=== PATIENT | female | born 2005 | race Caucasian/White ===

== ENCOUNTER 2024-05-05 18:01 | Emergency (ER) | payer MEDICAID ==
[~2024-05-05] VITALS: Ht 154.9 cm; Wt 66.0 kg
[2024-05-05 18:59] VITALS: TEMP 36.8; O2SAT 100
[2024-05-05 20:32] LABS: BASOPHILS % 0.4 % (0.0-2.0); EOSINOPHILS % 0.6 % (0.0-5.0); HEMATOCRIT. 43.5 % (36.0-48.0); HEMOGLOBIN. 14.9 g/dL (12.0-16.0); LYMPHOCYTES % 15.6 % (20.0-50.0); MEAN CORPUSCULAR HEMOGLOBIN 33.4 pg (28.0-32.0); MEAN CORPUSCULAR HGB CONC 34.3 g/dL (31.0-37.0); MEAN CORPUSCULAR VOLUME 97.2 fL (81.0-99.0); MEAN PLATELET VOLUME 8.5 fl (7.4-10.4); MONOCYTES % 8.7 % (2.0-8.0); NEUTROPHILS % 74.7 % (40.0-76.0); PLATELET 227 x1000/uL (130-400); RED BLOOD CELL COUNT 4.48 mill/uL (4.2-5.4); RED CELL DISTRIBUTION WIDTH 12.8 % (11.6-14.6); WHITE BLOOD COUNT 7.6 x1000/uL (4.5-11.0)
[2024-05-05 20:41] LABS: CHLORIDE 104 mEq/L (98-107); POTASSIUM 4.2 mEq/L (3.5-5.1); SODIUM 138 mEq/L (136-145)
[2024-05-05 20:42] LABS: CALCIUM 9.4 mg/dL (8.7-10.4); CARBON DIOXIDE 26 mEq/L (21-32)
[2024-05-05 20:43] LABS: HCG SCREEN NEGATIVE
[2024-05-05 20:47] LABS: CREATININE 0.6 mg/dL (0.6-1.0); GLUCOSE 96 mg/dL (70-105); UREA NITROGEN BLOOD 9 mg/dL (9-23)
[2024-05-05 20:49] LABS: ALANINE AMINOTRANSFERASE 43 IU/L (10-49); ALBUMIN 4.3 g/dL (3.2-4.8); ASPARTATE AMINOTRANSFERASE 32 IU/L (<34); BILIRUBIN DIRECT 0.2 mg/dL (<=3.0); BILIRUBIN TOTAL 0.6 mg/dL (0.1-1.0); PROTEIN TOTAL 7.5 g/dL (6.0-8.3)
[2024-05-05] MEDS: KETOROLAC 30MG/ML VIAL IM STA (20:59)
[2024-05-05 21:27] LABS: CLARITY URINE CLEAR (CLEAR); COLOR URINE DARK YELLOW (YELLOW); GLUCOSE URINE NEGATIVE (NEGATIVE); KETONES URINE NEGATIVE (NEGATIVE); LEUKOCYTE ESTERASE URINE NEGATIVE (NEGATIVE); NITRITE URINE NEGATIVE (NEGATIVE); OCCULT BLOOD URINE NEGATIVE (NEGATIVE); PH URINE 7.5 (4.5-8.0); PROTEIN URINE NEGATIVE (NEGATIVE); SPECIFIC GRAVITY URINE 1.022 (1.005-1.030)
[2024-05-05 21:50] VITALS: BP 118/78; PULSE 90; RESP 18; O2SAT 100
== END 2024-05-05 21:50 | disposition home or self-care (01) ==
LOC: ER 18:01
DX: R10.13 Epigastric pain (principal)
CPT/HCPCS: 99283; 80076; 80048; 81003; 84703; 83690; 85025; 36415; 96372; J1885

== ENCOUNTER 2024-06-23 10:34 | Emergency (ER) | payer MEDICAID ==
[~2024-06-23] VITALS: Ht 154.9 cm; Wt 76.0 kg
[2024-06-23 10:35] VITALS: O2SAT 99
[2024-06-23 10:45] VITALS: BP 115/80; PULSE 111; RESP 14; TEMP 36.6; O2SAT 97
[2024-06-23] MEDS ORDERED: AMOX-494 MT (11:09)
[2024-06-23] MEDS ORDERED: TOPUD PO (11:09)
[2024-06-23] MEDS ORDERED: IBUP-2029 MT (11:09)
== END 2024-06-23 11:36 | disposition home or self-care (01) ==
LOC: ER 10:34
DX: J02.9 Acute pharyngitis, unspecified (principal); H61.23 Impacted cerumen, bilateral; F19.90 Other psychoactive substance use, unspecified, uncomplicated
CPT/HCPCS: 99283